=== PATIENT | female | born 1990 | race Caucasian/White ===

== ENCOUNTER 2024-03-05 05:41 | Outpatient (CLI) | payer BC ==
[~2024-03-05] VITALS: Ht 177.8 cm; Wt 112.3 kg
--- NOTE | 2024-03-05 06:10 | NUR ---
0555: PT ARRIVES VIA WHEELCHAIR, ACCOMPANIED BY SPOUSE AND STAFF. SHOWN TO ROOM AND INSTRUCTED TO CHANGE INTO GOWN. 0605: RN AT THE BEDSIDE, PLACING PT ON MONITORS AND OBTAINING HX. PT REPORTS SHE WAS HAVING BACK PAIN YESTERDAY BUT WAS ABLE TO GO TO WORK, THE GYM AND A FEW OTHER THINGS. THEN AT 0200 THE BACK PAIN BECAME WORSE AND THE CTX SHE WAS HAVING BECAME MORE INTENSE WELL. AT 0300 THE CTX BECAME 5 MINUTES A PART, BUT VERY INTENSE AND UNCOMFORTABLE. DENIES ANY LOF, VAGINAL BLEEDING AND REPORTS GOOD MOVEMENT. RN DISCUSSES WITH THE PT HER HEALTH HX AND ANXIETY REGARDING LABOR AND DELIVERY. PT AND SPOUSE VERBALIZE UNDERSTANDING.
--- NOTE | 2024-03-05 06:15 | NUR ---
RN AT BEDSIDE. PT REPORTS HAVING A SENSORY DISORDER AND STRUGGLES WITH THE IDEA OF BEING CHECKED. PT REPORTS A SMALL TRICKLE OF FLUID FELT THIS MORNING AT 0300, HAS NOT FELT ANYTHING SINCE THEN. POSITIVE MOVEMENT, NO VAGINAL BLEEDING. SVE AT THIS TIME /-3. EFM CAT 1. VS STABLE.
[2024-03-05] MEDS ORDERED: IMITREX50 MG PO (06:41)
[2024-03-05 06:45] VITALS: BP 131/82; PULSE 96; TEMP 98.1
[2024-03-05] MEDS ORDERED: LR 1,000 ML IV PRN (06:45)
[2024-03-05] MEDS ORDERED: PRENATAL TABLET PO (07:12)
[2024-03-05 07:45] VITALS: BP 130/78; PULSE 88
--- NOTE | 2024-03-05 07:45 | NUR ---
DISCUSSED DC INSTRUCTIONS AND WHEN TO COME BACK IN. TOLD PT SHE CAN COME BACK FOR A LABOR CHECK WHENEVER NEEDED. PT AGREES. EFM CAT 1, VS STABLE.
[2024-03-06] MEDS ORDERED: TYLENOL 500MG500 MG PO (09:56)
[2024-03-06] MEDS ORDERED: IBU800 M1 PO (09:56)
== END 2024-03-05 07:45 | disposition home or self-care (01) ==
LOC: LDRO 05:41
DX: O26.893 Other specified pregnancy related conditions, third trimester (principal); E75.5 Other lipid storage disorders; Z3A.40 40 weeks gestation of pregnancy

== ENCOUNTER 2024-03-05 11:33 | Inpatient (IN) | payer BC ==
[2024-03-05] VITALS (46 sets, daily range): BP systolic 101–141; BP diastolic 53–89; PULSE 68–107; TEMP 97.6–98.7
[~2024-03-05] VITALS: Ht 177.8 cm; Wt 112.3 kg
[~2024-03-05 11:33] MED LIST: IMITREX50 MG PO; PRENATAL TABLET PO
--- NOTE | 2024-03-05 11:40 | NUR ---
PATIENT AMBULATORY TO UNIT WITH SPOUSE AND MOTHER. PATIENT ORIENTED TO LABOR ROOM 4 AND ASSISTED INTO A GOWN, PATIENT REPROTS CONTRACTIONS THAT ARE WORSE THAN THIS MONRING WHEN SHE WAS HERE, NO LEAKING OF FLUID OR VAGINAL BLEEDING AND GOOD MOVEMENT. EFM AND TOCO PLACED AND TRACING
[2024-03-05] MEDS ORDERED: LR 1,000 ML IV SCH (12:00)
[2024-03-05] MEDS ORDERED: LR & Oxytocin 500 ML IV SCH ×2 (12:00)
--- NOTE | 2024-03-05 12:03 | NUR ---
TO BEDSIDE FOR A BEDSIDE SONO, VERTEX PRESENTATION CONFIRMED.
[2024-03-05 12:32] LABS: BASO % 0.2 % (0.0-2.0); EOS # 0.1 K/mm3 (0.0-0.7); EOS % 0.6 % (0.0-4.0); GRAN # 9.3 K/mm3 (1.4-6.5); GRAN % 77.8 % (42.2-75.2); HEMOGLOBIN 11.6 g/dl (12.5-16.0); LYMPH # 1.2 K/mm3 (1.2-3.4); LYMPH % 10.4 % (20.0-51.0); MEAN CELL VOLUME 87 fl (80.0-100.0); MEAN CORPUSCULAR HEMOGLOBIN 30 pg (27-31); MEAN CORPUSCULAR HGB CONC 34 g/dl (33.0-37.0); MEAN PLATELET VOLUME 11.2 fl (7.4-10.4); MONO # 1.2 K/mm3 (0.1-0.6); MONO % 10.2 % (1.7-9.3); PLATELET COUNT 196 K/mm3 (130-400); RED BLOOD COUNT 3.88 M/mm3 (4.10-5.30); REDCELL DISTRIBUTION WIDTH-CV 12.9 % (11.5-14.5)
[2024-03-05 12:33] LABS: HEMATOCRIT 33.9 % (37.0-47.0)
--- NOTE | 2024-03-05 12:35 | NUR ---
THIS RN TO BEDSIDE DUE TO FHR NOT TRACING, EFM ADJUSTED.
[2024-03-05] MEDS ORDERED: ROPivacaine PF 0.2% 200 ML IV ONE (12:45)
--- NOTE | 2024-03-05 13:01 | NUR ---
1251- PATIENT BACK FROM RESTROOM, JIMMY BRAMBILA IN PATIENT ROOM TO EXPLAIN PROCEDURE. DIFFICULTY TRACING HEART RATE DUE TO MATERNAL POSITION. 1257- SINGLE SHOT ADMINISTERED BY KOSTA MARQUEZ. PATIENT TOLERATED WELL. 1301- PATIENT REPOSITIONED TO WEDGED RIGHT, FHR TRACING WELL. THIS RN REAMINS AT BEDSIDE TO MONITOR VITAL SIGNS.
[2024-03-05] MEDS ORDERED: diphenhydrAMINE 50 MG/ML 1 ML VIAL IV PRN (13:15)
[2024-03-05] MEDS ORDERED: ePHEDrine 50 MG/10 ML VIAL IV PRN (13:15)
[2024-03-05] MEDS ORDERED: Ondansetron 4 MG/2 ML VIAL IV PRN (13:15)
[2024-03-05] MEDS ORDERED: Naloxone 0.4 MG/ML VIAL IV PRN ×2 (13:15→23:30)
[2024-03-05] MEDS ORDERED: diphenhydrAMINE 25 MG CAP PO PRN (13:15)
--- NOTE | 2024-03-05 18:30 | NUR ---
Repositioned right lateral with left leg up in stirrup. Supported with pillows.
--- NOTE | 2024-03-05 19:00 | NUR ---
Repositioned left lateral with right leg up in stirrup. Patient c/o "window" of pain that feels like a pinch with contractions. Denies rectal pressure.
--- NOTE | 2024-03-05 19:30 | NUR ---
Repositioned semi-bradley's with wedge to left.
--- NOTE | 2024-03-05 20:00 | NUR ---
Repositioned right lateral with peanut ball following repeat SVE.
--- NOTE | 2024-03-05 20:14 | NUR ---
Takes one half of own Sumatriptan per 's okay.
--- NOTE | 2024-03-05 20:30 | NUR ---
Repositioned left lateral.
[2024-03-05] MEDS ORDERED: traZODone 50 MG TAB PO PRN (21:00)
--- NOTE | 2024-03-05 21:00 | NUR ---
Repositioned high bradley's. Note patient again c/o "window" of pain with contractions in right lower quadrant. Encouraged to breathe through the pain, instead of holding her breath.
--- NOTE | 2024-03-05 22:01 | NUR ---
2147- here for delivery. Bed broken down. 2149-Nursery nurse here for delivery. 2153-Charge nurse here for delivery. Step stool in place in preparation for shoulder dystocia. Head of bed laid flat by this health technical writer. 2154-Delivery of head by . Announces shoulder dystocia. McRobert's and suprapubic pressure applied by this health technical writer. Right anterior shoulder. 2155-Delivery of anterior shoulder. Rest of body delivered without complication. Note shoulder dystocia approximately 30 seconds. Infant to maternal abdomen. Delayed cord clamping performed. Father of baby directed to cut cord after doubly clamped by . 2200-Spontaneous vaginal delivery of placenta by . Pit bolus begun @ 333mU/min.
[2024-03-05] MEDS ORDERED: Magnes Hydrox (MOM) 80 MG/ML 30 ML CUP PO PRN (22:30)
[2024-03-05] MEDS ORDERED: Loratadine 10 MG TAB PO PRN (22:30)
[2024-03-05] MEDS ORDERED: Witch Hazel 50% Pads Bulk TUB TP PRN (23:30)
[2024-03-05] MEDS ORDERED: Mag/Al Hydrox/Simeth Susp 30 ML CUP PO PRN (23:30)
[2024-03-05] MEDS ORDERED: Phenylephrine/Mineral Oil/Petrolatum 57 GM TUBE RC PRN (23:30)
[2024-03-05] MEDS ORDERED: Acetaminophen 500 MG TAB PO SCH (23:30)
[2024-03-05] MEDS ORDERED: Ibuprofen 600 MG TAB PO SCH (23:30)
[2024-03-05] MEDS ORDERED: Measles/Mumps/Rubella Virus Vaccine Live w Diluent 0.5 ML VIAL SQ SCH (23:30)
[2024-03-05] MEDS ORDERED: oxyCODONE 5 MG TAB PO PRN (23:30)
[2024-03-05] MEDS ORDERED: Ibuprofen 800 MG TAB PO SCH (23:45)
[2024-03-06 00:05] VITALS: BP 129/60; PULSE 90
--- NOTE | 2024-03-06 00:20 | NUR ---
Assisted up to bathroom via Maggie Steady at this time. Marianne care provided, marianne care teaching completed. Patient unable to spontaneously void at this time. Will give another hour and attempt again. Mesh underwear, marianne pad, ice pack applied. Transferred to room 216 per Maggie [employer].
--- NOTE | 2024-03-06 00:30 | NUR ---
K-Pad provided for patient c/o uterine cramping.
[2024-03-06 01:05] VITALS: BP 135/72; PULSE 95; TEMP 98.1
[2024-03-06 02:05] VITALS: BP 132/76; PULSE 89; TEMP 98
[2024-03-06 06:50] VITALS: BP 119/64; PULSE 71; TEMP 98
[2024-03-06 07:35] LABS: HEMATOCRIT 27.9 % (37.0-47.0); HEMOGLOBIN 9.7 g/dl (12.5-16.0)
[2024-03-06] MEDS ORDERED: Sennosides/Docusate 8.6-50 MG TAB PO SCH (08:00)
[2024-03-06] MEDS ORDERED: Prenatal Vitamins/Iron/FA TAB PO SCH (09:00)
--- NOTE | 2024-03-06 09:42 | NUR ---
Initial visit; Parents thanked Dish Stacker for looking in on them and offering congratulations and God's blessings for the of their son. Dish Stacker thanked family for choosing [facility].
[2024-03-06] MEDS ORDERED: IBU800 M1 PO (09:56)
[2024-03-06] MEDS ORDERED: TYLENOL 500MG500 MG PO (09:56)
[2024-03-06] MEDS ORDERED: Ferrous Sulfate 325 MG TAB PO SCH (10:03)
[2024-03-06 16:35] VITALS: BP 110/61; PULSE 75; TEMP 98.1
[2024-03-06 22:15] VITALS: BP 135/75; PULSE 89; TEMP 98.3
[2024-03-07 07:25] VITALS: BP 130/72; PULSE 72; TEMP 98.3
--- NOTE | 2024-03-07 14:10 | NUR ---
DISCHARGE TEACHING REVIEWED WITH BENJY AND SPOUSE. PATIENT AMBULATORY OFF UNIT WITH THIS RN, SPOUSE, AND PATIENT MOTHER. PATIENT DISCHARGED HOME IN [place] CONDITION.
== END 2024-03-07 14:10 | disposition home or self-care (01) | DRG 806 ==
LOC: LDRO 11:33 → OB 12:01 → LDR 12:01 → OB 03-06 00:20
PROVIDERS: ADMIT Obstetrics & Gynecology
PROC: 10E0XZZ Delivery of Products of Conception, External Approach (ICD-10-PCS; principal; 2024-03-05)
PROC: 0KQM0ZZ Repair Perineum Muscle, Open Approach (ICD-10-PCS; 2024-03-05)
DX: O48.0 Post-term pregnancy (principal); D62 Acute posthemorrhagic anemia; Z37.0 Single live birth; F84.0 Autistic disorder; O77.0 Labor and delivery complicated by meconium in amniotic fluid; O99.344 Other mental disorders complicating childbirth; O70.1 Second degree perineal laceration during delivery; O66.0 Obstructed labor due to shoulder dystocia; O90.81 Anemia of the puerperium; Z3A.40 40 weeks gestation of pregnancy
CPT/HCPCS: J2590; J2795; J7120